=== PATIENT | female | born 1985 | race Caucasian/White ===

== ENCOUNTER 2017-11-02 07:05 | Inpatient (IN) | payer OTHER, SELFPAY ==
[2017-11-02] MEDS: Lactated Ringers 1,000 ML 50 ML IV ×3 (07:50→18:30)
[2017-11-02 08:10] LABS: Hematocrit 37.1 % (37-47); Hemoglobin 13.2 g/dl (12.0-15.0); Mean Corp Hgb Conc 35.6 g/gl (32-36); Mean Corpuscular Hgb 33.5 pg (27.0-32.0); Mean Corpuscular Volume 94.2 fL (81-99); Mean Platelet Vol. 10.7 fl (6.2-12.0); Platelet Count 163 K/mm3 (150-450); RBC Distribution Width SD 43.5 fl (35.1-43.9); Red Blood Count 3.94 M/mm3 (4.2-5.4); White Blood Count 6.4 K/mm3 (4.4-11.0)
[2017-11-02 08:16] LABS: Scan Indicated on CBC? Y/N NO
--- NOTE | 2017-11-02 08:18 | PCM.HP.OB ---
History Date of Admission: 11/02/17 Final TOM: 10/26/17 Gestational age: 41 Weeks and 0 Days History of this : GBS negative Pertinent Past Medical History: None Allergies No Known Allergies Allergy (Verified 11/02/17 08:03) Smoking Status: Never smoker Alcohol: None Drug Use: none Number of Fetus(es): 1 Physical Exam General: Alert, Oriented x3 Abdomen: Soft, Non Tender, Non-Distended, Gravid Presentation: Cephalic Cervix Dilation (cm): 2 Station: -3 - AROM scant clear fluid Effacement (%): 70 Assessment/Plan 32yo female at 41 weeks for induction Admit to L&D Start pitocin FWB - fhts now 145 with mod variability, accel (previously was minimal variability) GBS negative Epidural when desired Routine care
[2017-11-02] MEDS: Oxytocin 30 units/NS 500 ml 30 UNITS/500 ML IV.SOLN IV (08:54)
[2017-11-02 08:59] VITALS: BMI 34.7
--- NOTE | 2017-11-02 13:36 | PCM.PN.BLA ---
Progress Note S: Patient feeling increasing ctxs O cvx 3-4/70/-2 FSE & IUPC placed fhts 135 with mod variability, variables, accels - overall reassuring tocos Q 2 min A&P: continue pit proceed with epidural
[2017-11-02] MEDS: fentaNYL-bupivacaine (epidural) 100 ML BAG EPIDURAL (14:00)
[2017-11-02] MEDS: Oxytocin 30 units/NS 500 ml 30 UNITS/500 ML IV.SOLN 334 UNITS IV (18:55)
[2017-11-02] MEDS: Oxytocin 30 units/NS 500 ml 30 UNITS/500 ML IV.SOLN 167 UNITS IV (19:32)
--- NOTE | 2017-11-02 19:37 | PCM.OB.VAG ---
Vaginal Delivery Maternal Presentation: Medically Indicated Induction Method of Induction: Pitocin, Amniotomy Amniotic Membrane Rupture Type: Artificial Amniotic Fluid Description: Clear Final TOM: 10/26/17 Gestational age: 41 Weeks and 0 Days Date of Procedure: 11/02/17 Pre-Operative Diagnosis: post-dates Post-Operative Diagnosis: post-dates Surgery/ Procedure Performed: Spontaneous Vaginal Delivery Type of Anesthesia: Epidural Description of Procedure: Patient c/c/+2. She was in stirrups, prepped & draped. she pushed and was having deep variables. head was starting to crown & ritgen maneuver used to expedite delivery of head. Double tight nuchal cord noted and patient told to stop pushing. Nuchal cord was clamped & cut. Then shoulders & body easily delivered with maternal pushing effort. placed on maternal abdomen. placenta delivered with gentle traction. good uterine tone obtained. Presentation: NADER Placental Delivery Description: Expressed Cord Vessel Description: 3 Vessels Cord Entanglement: Around neck x 2, tight Infant A gender: Female (1 minute): 9 (5 minute): 9 Episiotomy Description: None Laceration: 2nd degree - perineal - repaired with 3-0 vciryl Medications given after delivery: IV Pitocin
[2017-11-02 21:03] VITALS: BP 121/74; PULSE 82; RESP 16; TEMP 36.5
[2017-11-02] MEDS: 0.9% Saline Lock 10 ML Syringe IV (21:05)
[2017-11-02] MEDS: Ibuprofen 600 MG Tablet PO (23:29)
[2017-11-02 23:38] VITALS: BP 123/69; PULSE 84; RESP 16; TEMP 36.6
[2017-11-03 04:25] VITALS: BP 93/53; PULSE 74; RESP 16; TEMP 36.5
[2017-11-03] MEDS: Ibuprofen 600 MG Tablet PO ×2 (07:04→18:41)
--- NOTE | 2017-11-03 07:58 | PCM.PN.OB ---
Subjective: No complaints - Physical Exam General: Alert, Oriented x3 Abdomen: Soft, Non Tender, Non-Distended - ff mid & below umb Extremities: No Calf Tenderness Vital Signs Temp Pulse Resp BP 97.7 F L 74 16 93/53 L 11/03/17 04:25 11/03/17 04:25 11/03/17 04:25 11/03/17 04:25 Weight: 235 lb Body Mass Index (BMI) 34.7 Intake and Output for Last 24 Hours 11/01/17 11/02/17 11/03/17 23:59 23:59 23:59 Intake Total 3270 / 3270 Output Total 3700 / 3700 1000 / 1000 Balance -430 / -430 -1000 / -1000 Laboratory Tests Past 24 Hrs 11/02/17 11/02/17 07:50 07:50 WBC 6.4 RBC 3.94 L Hgb 13.2 Hct 37.1 MCV 94.2 MCH 33.5 H MCHC 35.6 RDW 13.0 RDW Differential 43.5 Plt Count 163 MPV 10.7 Blood Type A POSITIVE Antibody Screen NEGATIVE Medical Necessity - Tobacco Use Smoking Status: Never smoker Assessment/Plan 32yo female PPD#1 ROutine care possible d/c home later in day
[2017-11-03 08:00] VITALS: BP 115/61; PULSE 77; RESP 20; TEMP 36.2; O2SAT 98
--- NOTE | 2017-11-03 08:00 | PCM.DCVAG ---
Discharge Diet: No Restrictions Discharge Activity: May Drive, May Shower May resume sexual activity in: 4-6 weeks Weight Bearing Status: Weight bearing as tolerated Additional Instructions: If you experience any of the following, contact your healthcare provider. Bleeding that soaks a pad every hour for 2 hours Fever 100.4 or higher Unrelieved incision or abdominal pain Swelling, redness, discharge or bleeding from your incision or episiotomy site Your incision begins to separate Problems urinating (including inability to urinate or burning while urinating). Visual changes Severe headache Flu-like symptoms Pain or redness in one of both of your breasts Pain, warmth, tenderness or swelling in your legs, especially the calf area Frequent nausea and vomiting Symptoms of depression or anxiety If you experience any of the following, call 911 or go to the nearest Emergency Room. Chest pain Problems breathing Seizure activity Partial or complete paralysis of a body part, slurred speech, weakness or drooping of the face, or a sudden inability to walk or hold your balance Allergies/Adverse Reactions: Allergies No Known Allergies Allergy (Verified 11/02/17 08:03) Medications to take at Discharge Vits [Prenatabs FA ] 1 tablet PO DAILY@1200 tablet 11/03/17 Primary Care Physician: Corky Howell [Primary Care Provider] -
--- NOTE | 2017-11-03 08:01 | DCINST_ITS ---
Discharge Diet: No Restrictions Discharge Activity: May Drive, May Shower May resume sexual activity in: 4-6 weeks Weight Bearing Status: Weight bearing as tolerated Additional Instructions: If you experience any of the following, contact your healthcare provider. * Bleeding that soaks a pad every hour for 2 hours * Fever 100.4 or higher * Unrelieved incision or abdominal pain * Swelling, redness, discharge or bleeding from your incision or episiotomy site * Your incision begins to separate * Problems urinating (including inability to urinate or burning while urinating) . * Visual changes * Severe headache * Flu-like symptoms * Pain or redness in one of both of your breasts * Pain, warmth, tenderness or swelling in your legs, especially the calf area * Frequent nausea and vomiting * Symptoms of depression or anxiety If you experience any of the following, call 911 or go to the nearest Emergency Room. * Chest pain * Problems breathing * Seizure activity * Partial or complete paralysis of a body part, slurred speech, weakness or drooping of the face, or a sudden inability to walk or hold your balance Allergies/Adverse Reactions: Allergies No Known Allergies Allergy (Verified 11/02/17 08:03) Medications to take at Discharge Vits [Prenatabs FA ] 1 tablet PO DAILY@1200 tablet 11/03/17 Primary Care Physician: Corky Howell [Primary Care Provider] -
[2017-11-03] MEDS: Prenatal Vits Tablet 1 TABLET PO (11:40)
[2017-11-03] MEDS: Senna/Docusate Sodium 1 Tablet PO (11:40)
[2017-11-03 12:30] VITALS: BP 106/63; PULSE 106; TEMP 36.4; O2SAT 97
[2017-11-03 15:30] VITALS: BP 110/53; PULSE 81; RESP 16; TEMP 36.2; O2SAT 97
[2017-11-03 20:41] VITALS: BP 109/64; PULSE 83; RESP 18; TEMP 36.3
[2017-11-04] MEDS: Ibuprofen 600 MG Tablet PO ×2 (00:56→07:47)
[2017-11-04 02:10] VITALS: BP 119/64; PULSE 69; RESP 18; TEMP 36.3; O2SAT 98
--- NOTE | 2017-11-04 07:51 | PCM.PN.OB ---
Objective: pt seen at bedside doing well. pt ready for dc home. pt reports minimal lochia. breast feeding. - Physical Exam Abdomen: Soft, Non Tender, Non-Distended, - - fundus firm Extremities: No Calf Tenderness Vital Signs Temp Pulse Resp BP Pulse Ox 97.4 F L 69 18 119/64 98 11/04/17 02:10 11/04/17 02:10 11/04/17 02:10 11/04/17 02:10 11/04/17 02:10 Oxygen Delivery Method Room Air Weight: 106.594 kg Body Mass Index (BMI) 34.7 Intake and Output for Last 24 Hours 11/02/17 11/03/17 11/04/17 23:59 23:59 23:59 Intake Total 3270 / 3270 Output Total 3700 / 3700 1000 / 1000 Balance -430 / -430 -1000 / -1000 Medical Necessity - Tobacco Use Smoking Status: Never smoker Assessment/Plan PPD#2, doing well routine care dc home
[2017-11-04 07:52] VITALS: BP 116/53; PULSE 83; RESP 18; TEMP 36.2; O2SAT 98
== END 2017-11-04 09:30 | disposition home or self-care (01) | DRG 775 ==
PROVIDERS: Admitting Provider Obstetrics & Gynecology; Family Provider Family Medicine; PCP Family Medicine; Visit Provider Obstetrics & Gynecology
DX: O48.0 Post-term pregnancy (principal); O69.1XX0 Labor and delivery complicated by cord around neck, with compression, not applicable or unspecified; O70.1 Second degree perineal laceration during delivery; Z37.0 Single live birth; Z3A.41 41 weeks gestation of pregnancy
CPT/HCPCS: 59025; 59050; 85027; 86850; 86900; 99218; J7120; A4216; G0378